=== PATIENT | male | born 1965 | race Asian ===

== ENCOUNTER 2019-02-27 06:27 | Day surgery (SDC) | payer OTHER ==
[2019-02-27] VITALS (15 sets, daily range): BP systolic 110–135; BP diastolic 83–92; PULSE 60–80; RESP 10–17; Ht 170.2 cm; Wt 71.9 kg
[~2019-02-27] VITALS: Ht 170.2 cm; Wt 71.9 kg
[~2019-02-27 06:27] MED LIST: ATOR20TA38 PO
[2019-02-27] MEDS ORDERED: CLINDAMYCIN 900 MG (PMX) 900 MG/50 ML BAG IVPB ONE (07:00)
[2019-02-27] MEDS ORDERED: PROPOFOL 20 ML ONE (08:21)
[2019-02-27] MEDS ORDERED: FENTAnyl 50 MCG/ML VIAL ONE (08:21)
[2019-02-27] MEDS ORDERED: CEFAZOLIN 1 GM INJ ONE (08:21)
[2019-02-27] MEDS ORDERED: GLYCOPYRROLATE 0.4 MG INJ ONE (08:21)
[2019-02-27] MEDS ORDERED: MIDAZOLAM 1 MG/ML 2 ML INJ ONE (08:21)
[2019-02-27] MEDS ORDERED: ROCURONIUM 50 MG INJ ONE (08:21)
[2019-02-27] MEDS ORDERED: NEOSTIGMINE 3 MG/3 ML SYRINGE ONE (08:21)
[2019-02-27] MEDS ORDERED: ONDANSETRON 4 MG INJ ONE (08:21)
[2019-02-27] MEDS ORDERED: DEXAMETHASONE 4 MG/ML 5 ML INJ ONE (08:21)
[2019-02-27] MEDS ORDERED: ROPIVACAINE 0.5 % 30 ML VIAL ONE (08:22)
[2019-02-27] MEDS ORDERED: HYDROmorphONE 1 MG/5 ML IV SYRINGE IV PRN (09:00)
[2019-02-27] MEDS ORDERED: METOCLOPRAMIDE 10 MG INJ IV PRN (09:00)
[2019-02-27] MEDS ORDERED: EPHEDrine 25 MG/5 ML SYG IV PRN (09:00)
[2019-02-27] MEDS ORDERED: LABETALOL HCL 20MG INJ IV PRN (09:00)
[2019-02-27] MEDS ORDERED: SOD CHLORIDE 0.9% 1,000 ML IV ONE (09:00)
[2019-02-27] MEDS ORDERED: FENTAnyl 50 MCG/ML VIAL IV PRN ×2 (09:00)
[2019-02-27] MEDS ORDERED: OXYCODONE/ACETAMINOPHEN (5/325) TAB PO PRN (09:00)
[2019-02-27] MEDS ORDERED: ONDANSETRON 4 MG INJ IV PRN (09:00)
[2019-02-27] MEDS ORDERED: CLINDAMYCIN 600 MG/D5W (PMX) 50 ML IVPB SCH (09:00)
[2019-02-27] MEDS ORDERED: POLYMYXIN/BACITRACIN 1L IRRIG IRR ONE (09:58)
[2019-02-27] MEDS ORDERED: HYDROCODONE/APAP (5/325) TAB PO ONE (10:30)
[2019-02-27] MEDS: HYDROmorphONE 1 MG/5 ML IV SYRINGE IV PRN ×2 (10:34→10:49)
== END 2019-02-27 12:38 | disposition home or self-care (01) ==
LOC: SDS 06:27 → EDSEX 06:27 → SDS 12:38
PROVIDERS: ATTEND Surgery
DX: K40.90 Unilateral inguinal hernia, without obstruction or gangrene, not specified as recurrent (principal); E78.5 Hyperlipidemia, unspecified; Z87.891 Personal history of nicotine dependence
CPT/HCPCS: C1781; J0690; J1100; J1170; J2250; J2405; J2710; J2795; J3010